=== PATIENT | male | born 1945 | race Caucasian/White ===

== ENCOUNTER 2017-06-19 05:49 | Emergency (ER) | payer OTHER, MEDICARE ==
[~2017-06-19] VITALS: Ht 177.8 cm; Wt 81.6 kg
[~2017-06-19 05:49] MED LIST: ACTONEL35 M1 PO; ALBUTEROL1.25 MG/1 INH/SOL; ANORO ELLIPTA1 EACH PO; AUGMENTIN 875-1 EACH PO; CIALIS5 M1 PO; FLUTICASON0.05 MG/A2 NASB; HYDROCODONE/ACE1 TA2 PO; METOPROLOL SUCC25 M1 PO; NEBULIZER; PEPCID COMPLET1 EACH PO; PERCOCET 325 MG1 TA2 PO; POLYMYXIN B-TMP10 ML OPH; PREDNISONE10 M2 PO; PROAIR HFA8.5 GM INH; SILDENAFIL20 MG PO; SIMVASTATIN40 M1 PO; SPIRIVA 18 MCG18 MCG INH; VALIUM5 M2 PO; ZOLPIDEM TART6.25 MG PO; ZOLPIDEM TARTRAT5 M1 PO
--- NOTE | 2017-06-19 05:59 | ED DYSPNEA/ASTHMA COMPLAINT ---
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 yes Onset: Gradual Duration: day(s): Timing: recent history Severity: mild, moderate Activities at Onset: sleep Prior Episodes/Possible Cause: recent episode Modifying Factors: Improves With: rest. Worsens With: movement. Associated Symptoms: cough, wheezing HPI: 71 yo gentleman h/o copd, h/o cad, presents with 1 day of cough, wheezing, and shortness of breath, that worsened at approximately 1am. He was seen last sunday in the ED for COPD. He was given steroids and augmentin. "I finished my last steroid pill yesterday." He notes no chest pain, lower extremity swelling, dizziness, syncopal symptoms. He is otherwise well. ([place] MENA,Manjeet Louis) Vital Signs & Intake/Output Vital Signs & Intake/Output Vital Signs Date Time Temp Pulse Resp B/P B/P Pulse O2 O2 Flow FiO2 Mean Ox Delivery Rate 06/19 0846 98 06/19 0744 97.1 79 22 115/71 99 Room Air 06/19 0602 97.8 97 22 131/71 93 Room Air 06/19 0601 Room Air ED Intake and Output 06/20 0000 06/19 1200 Intake Total Output Total Balance Patient 180 lb Weight Weight Reported by Patient Measurement Method Reconcile Medications Albuterol Sulfate 1.25 MG/3 ML VIAL.NEB 1 Vial INH/AMITA Q4-6 PRN SOB Albuterol Sulfate (Proair Hfa) 90 MCG HFA.AER.AD 2 PUF INH Q4-6 PRN PRN SOB Amoxicillin/Potassium Clav (Augmentin 875-125 Tablet) 875 MG-125 MG TABLET 1 TAB PO BID BRONCHITIS Azithromycin (Zithromax) 250 MG TABLET 1 DP PO AD COPD/BRONCHITIS 2 the first day followed by 1 for days 2-5 Diazepam (Valium) 5 MG TABLET 0.5 TAB PO DAILY SLEEP (Reported) Famotidine/Ca Carb/Mag Hydrox (Pepcid Complete Tablet Chew) 10 MG-800 MG-165 MG TAB.CHEW 1 TAB PO DAILY GI (Reported) Ipratropium/Albuterol Sulfate (Iprat-Albut 0.5-3(2.5) MG/3 Ml) 0.5 MG-3 MG (2.5 MG BASE)/3 ML AMPUL.NEB 1 VIAL INH Q6 PRN COPD Metoprolol Succinate 25 MG TAB 0.5 TAB PO DAILY HEART (Reported) Prednisone (Deltasone) 20 MG TABLET 3 TAB PO DAILY WHEEZING BEGIN TOMORROW Prednisone 10 MG TABLET 1 TAB PO DAILY BRONCHITIS 3 TABS ANA MARIA X 3 DAYS, 2 TABS PO X 3 DAYS, 1 TAB PO X 3 DAYS Risedronate Sodium (Actonel) 35 MG TABLET 1 TAB PO Sa BONE (Reported) Simvastatin (Simvastatin*) 40 MG TABLET 1 TAB PO QPM CHOLESTEROL (Reported) Tadalafil (Cialis) 5 MG TABLET 1 TAB PO DAILY ED (Reported) Umeclidinium Brm/Vilanterol Tr (Anoro Ellipta 62.5-25 Mcg INH) 62.5 MCG-25 MCG/ ACTUATION BLST.W.DEV 1 INH PO DAILY COPD (Reported) Zolpidem Tartrate 5 MG TABLET 0.5 TAB PO QPM SLEEP (Reported) (Lala MENA,Trey Laura) Past History Travel History Traveled to [place] past 21 day No Medical History Any Pertinent Medical History? 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 No ([place] MENA,Manjeet Louis) Review of Systems Review of Systems Constitutional: Reports: no symptoms. EENTM: Reports: no symptoms. Respiratory: Reports: no symptoms. Cardiovascular: Reports: no symptoms. GI: Reports: no symptoms. Genitourinary: Reports: no symptoms. Musculoskeletal: Reports: no symptoms. Skin: Reports: no symptoms. Neurological/Psychological: Reports: no symptoms. Hematologic/Endocrine: Reports: no symptoms. Immunologic/Allergic: Reports: no symptoms. All Other Systems: Reviewed and Negative ([place] MENA,Manjeet Louis) Physical Exam Physical Exam General Appearance: well developed/nourished, mild distress Head: atraumatic, normal appearance Eyes: Bilateral: normal appearance. Ears, Nose, Throat: normal pharynx, normal ENT inspection Neck: normal inspection, supple, full range of motion Respiratory: wheezing, prolonged expiratory phase Cardiovascular: regular rate/rhythm Gastrointestinal: normal bowel sounds, soft, non-tender, no organomegaly Extremities: normal inspection, normal capillary refill, normal range of motion, no edema Neurologic/Psych: no motor/sensory deficits, awake, alert, oriented x 3 Skin: intact, normal color, warm/dry ([place] MENA,Manjeet Louis) Core Measures ACS in differential dx? No CVA/TIA Diagnosis No Sepsis Present: No Sepsis Focused Exam Completed? No (Lala MENA,Trey Laura) Progress Differential Diagnosis: asthma, bronchitis, CHF, COPD Diagnostic Imaging: Viewed by Me: Radiology Read. Discussed w/RAD: Radiology Read. CXR Impression: no acute abnormality, no infiltrates, normal size heart, normal mediastinum, PATIENT: KELECHI BELTRÁN PRESENT AGE: 71 PATIENT ACCOUNT NO: [id number] : 44 LOCATION: [facility] ORDERING PHYSICIAN: Manjeet Osborne MD SERVICE DATE: 06/19/17 EXAM TYPE: RAD - XRY- PORTABLE CHEST XRAY EXAMINATION: XR PORTABLE CHEST CLINICAL INFORMATION: Chest pain. COMPARISON: 06/11/2017 TECHNIQUE: Portable frontal view of the chest was obtained. FINDINGS: The lungs are well expanded. No consolidation, edema, or effusion. No pneumothorax. The cardiomediastinal silhouette is within normal limits. No acute osseous abnormality. IMPRESSION: No acute pulmonary finding. DICTATED BY: Jake Gagnon MD DATE/TIME DICTATED:06/19/17644 GAS PUMPING STATION HELPER:SERINA DATE/TIME TRANSCRIBED:06/19/17644 CONFIDENTIAL, DO NOT COPY WITHOUT APPROPRIATE AUTHORIZATION. <Electronically signed in Other Vendor System> SIGNED BY: Jake Gagnon MD 06/19/17 0650 Initial ED EKG: normal axis, normal intervals, normal p-waves, normal QRS complex, normal sinus rhythm Hand-Off Endorsed To: Trey Reeves MD Endorsed Time: 0700 Pending: EKG, labs, Xray ([place] MENA,Manjeet Louis) Plan of Care: Orders Procedure Date/time Status TROPONIN LEVEL 06/19 608 Complete LIPASE 06/19 608 Complete HEPATIC FUNCTION PANEL 06/19 608 Complete D-DIMER 06/19 608 Complete CBC WITHOUT DIFFERENTIAL 06/19 608 Complete BASIC METABOLIC PANEL 06/19 608 Complete AMYLASE 06/19 608 Complete EKG 06/19 608 Active Laboratory Tests 06/19/17 0636: Anion Gap 11, Estimated GFR > 60, BUN/Creatinine Ratio 15.5, Glucose 98, Calcium 9.2, Total Bilirubin 0.6, Direct Bilirubin 0.3, AST 21, ALT 32, Alkaline Phosphatase 74, Troponin I < 0.01, Total Protein 7.0, Albumin 4.2, Amylase 98, Lipase 161, D-Dimer High Sensitivty < 200, CBC w Diff NO MAN DIFF REQ, RBC 4.10 L, MCV 95.0 H, MCH 31.8 H, MCHC 33.4, RDW 13.7, MPV 7.0 L, Gran % 78.2 H, Lymphocytes % 12.1 L, Monocytes % 3.9, Eosinophils % 5.5 H, Basophils % 0.3, Absolute Granulocytes 8.6 H, Absolute Lymphocytes 1.3, Absolute Monocytes 0.4, Absolute Eosinophils 0.6, Absolute Basophils 0 Comments: 06/19/2017 7:59:20 AM patient 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 He also has received a nebulizer treatment and IV steroids and states he feels better. Physical examination reveals adequate air entry but scattered end expiratory wheezing was nearly. I feel he requires additional treatment here in the emergency department, disposition pending. 06/19/2017 9:25:45 AM Kelechi is feeling better after second nebulizer treatment. I feel with the change from straight albuterol to Combivent and another round of prednisone and antibiotics, his home care has been significantly enhanced and he therefore can be treated as an outpatient. Patient agrees. (Lala MENA,Trey Laura) Departure Departure Condition: Stable Clinical Impression Primary Impression: COPD exacerbation Referrals: Meena MENA,Gian Angel (PCP/Family) Departure Forms: Customer Survey General Discharge Information PA/INSURANCE RISK SURVEYOR Co-Sign Statement Statement: ED Attending supervision documentation- [] I saw and evaluated the patient. I have also reviewed all the pertinent lab results and diagnostic results. I agree with the findings and the plan of care as documented in the PA's/INSURANCE RISK SURVEYOR's documentation. [x] I have reviewed the ED Record and agree with the PA's/INSURANCE RISK SURVEYOR's documentation. [] Additions or exceptions (if any) to the PAs/INSURANCE RISK SURVEYOR's note and plan are summarized below: [] ([place] MENA,Manjeet Louis) Departure Disposition: HOME OR SELF CARE Additional Instructions: DuoNeb inhaler every 6 hours as needed for your shortness of breath. You may use the rescue inhaler in between DuoNeb treatments if necessary. Prednisone as prescribed. Follow-up with your primary care physician or your multimedia coordinator before the end of the prednisone prescription as this will require a prolonged tapering before discontinuation. Rest and avoid exertion. Return if any concerns or sudden worsening. Thank you for choosing the [facility] Emergency Department for your care. It was a pleasure to serve you today. Trey Reeves M.D. [facility] Prescriptions: Current Visit Scripts Ipratropium/Albuterol Sulfate (Iprat-Albut 0.5-3(2.5) MG/3 Ml) 1 VIAL INH Q6 PRN COPD #30 VIAL Prednisone (Deltasone) 3 TAB PO DAILY #12 TAB BEGIN TOMORROW Azithromycin (Zithromax) 1 DP PO AD #6 TAB 2 the first day followed by 1 for days 2-5 (Lala MENA,Trey Laura) Critical Care Note Critical Care Note Critical Care Time: 30-74 min (Trey Reeves MD)
--- NOTE | 2017-06-19 06:50 | RADIOLOGY REPORT ---
EXAMINATION: XR PORTABLE CHEST CLINICAL INFORMATION: Chest pain. COMPARISON: 06/11/2017 TECHNIQUE: Portable frontal view of the chest was obtained. FINDINGS: The lungs are well expanded. No consolidation, edema, or effusion. No pneumothorax. The cardiomediastinal silhouette is within normal limits. No acute osseous abnormality. IMPRESSION: No acute pulmonary finding.
[2017-06-19 06:51] LABS: ABSOLUTE BASOPHIL COUNT 0 /CUMM (0.0-0.2); ABSOLUTE EOSINOPHIL COUNT 0.6 /CUMM (0.0-0.7); ABSOLUTE GRANULOCYTE CT 8.6 /CUMM (1.4-6.5); ABSOLUTE LYMPH COUNT 1.3 /CUMM (1.2-3.4); ABSOLUTE MONOCYTE COUNT 0.4 /CUMM (0.10-0.60); BASOPHIL % 0.3 % (0.0-2.0); EOSINOPHIL % 5.5 % (0-5); GRANULOCYTE % 78.2 % (42.2-75.2); MEAN CORPUSCULAR HGB 31.8 PG (27.0-31.0); MEAN CORPUSCULAR HGB CONC 33.4 G/DL (33.0-37.0); PLATELET COUNT 307 /CUMM (130-400); RBC DISTRIBUTION WIDTH 13.7 % (11.5-14.5)
[2017-06-19 07:44] VITALS: BP 115/71
[2017-06-19] MEDS ORDERED: IPRAT-ALBUT 0.5-3 ML INH (09:31)
[2017-06-19] MEDS ORDERED: ZITHROMAX250 M2 PO (09:31)
[2017-06-19] MEDS ORDERED: DELTASONE20 MG PO (09:31)
== END 2017-06-19 09:52 ==
LOC: ERH 05:49
PROVIDERS: Pediatrics
DX: J44.1 Chronic obstructive pulmonary disease with (acute) exacerbation (principal)
CPT/HCPCS: 1263; 71045; 93005; 93010; 96374; J2930